=== PATIENT | male | born 1935 | race Caucasian/White ===

== ENCOUNTER → 2017-08-09 | Outpatient (CLI) | payer MEDICARE, OTHER ==
--- NOTE | 2017-08-09 12:58 | Diagnostic Imaging Report ---
INDICATION: Trauma. COMPARISON: None. FINDINGS: Two views of the chest are obtained. Heart size is normal. The pulmonary vessels appear unremarkable. There is mild tortuosity of the thoracic aorta. Mediastinum is otherwise unremarkable. There is no pneumothorax, mediastinal widening or pleural fluid demonstrated. Nodular densities over the lower chest bilaterally are felt to be artifactual. The lungs are clear. There is some flattening of the diaphragms suggestive of COPD. There are mild degenerative changes in the spine. IMPRESSION: There is no radioactive evidence of an acute cardiopulmonary abnormality. Dictated by: Dictated on workstation # [id number]
--- NOTE | 2017-08-09 17:45 | Diagnostic Imaging Report ---
INDICATION: Trauma with left rib pain. AP and oblique views of the left ribs are obtained. No underlying pneumothorax or pleural fluid is seen. There is no acute fracture. There appears to be an old fracture of the eighth and ninth ribs. There is no lytic or blastic lesion. IMPRESSION: Old left-sided rib fractures as above. No acute abnormality seen. No underlying pneumothorax or pleural fluid. Dictated by: Dictated on workstation # [id number]
== END ==
LOC: RAD 12:13
PROVIDERS: ATTEND Internal Medicine
DX: R07.81 Pleurodynia (principal)
CPT/HCPCS: 71046; 71100

== ENCOUNTER → 2019-08-18 | Outpatient (CLI) | payer MEDICARE, OTHER ==
--- NOTE | 2019-08-18 12:43 | Diagnostic Imaging Report ---
INDICATION: Hyponatremia. TIME OF EXAM: 10:32 AM. COMPARISON: 08/09/2017. FINDINGS: The heart size is normal. There is some hazy density in the left lung base. Some mild infiltrate cannot be excluded. The remainder of the lung domínguez is clear. The pulmonary vascularity is normal. There is some hyperinflation, suggestive of COPD. No effusion or pneumothorax is detected. IMPRESSION: Questionable mild left basilar infiltrate. The study is otherwise unremarkable. Dictated by: Dictated on workstation # [id number]
== END ==
LOC: RAD 10:08
PROVIDERS: ATTEND Internal Medicine
DX: E87.1 Hypo-osmolality and hyponatremia (principal); M62.81 Muscle weakness (generalized); R63.4 Abnormal weight loss
CPT/HCPCS: 71046

== ENCOUNTER → 2019-10-01 | Outpatient (CLI) | payer MEDICARE, OTHER | LOC: LABNPT 08:38 | PROVIDERS: ATTEND Nurse Practitioner | DX: Z11.59 Encounter for screening for other viral diseases (principal) ==

== ENCOUNTER → 2019-10-05 | Outpatient (CLI) | payer MEDICARE, OTHER | LOC: LABNPT 06:39 | PROVIDERS: ATTEND Nurse Practitioner | DX: Z11.59 Encounter for screening for other viral diseases (principal) | CPT/HCPCS: 87635 ==